=== PATIENT | female | born 2000 | race Caucasian/White ===

== ENCOUNTER 2022-12-12 18:23 | Emergency (ER) | payer OTHER ==
[~2022-12-12] VITALS: Ht 165.1 cm; Wt 91.5 kg
[2022-12-12 18:30] VITALS: TEMP 98.5
[2022-12-12 19:16] LABS: BASO % 0.3 % (0.0-1.0); EOS # 0.1 10^3/uL (0.0-0.5); EOS % 0.8 % (0.0-3.0); HEMATOCRIT 42.4 % (36.0-47.0); HEMOGLOBIN 13.8 g/dl (12.0-15.5); LYMPH # 2.6 10^3/uL (1.5-5.0); MEAN CORPUSCULAR HEMOGLOBIN 28.2 pg (27.0-33.0); MEAN CORPUSCULAR HGB CONC 32.5 g/dl (32.0-36.5); MEAN CORPUSCULAR VOLUME 86.5 fl (80.0-96.0); MONO # 0.9 10^3/uL (0.0-0.8); MONO % 5.5 % (2.0-8.0); NEUTROPHILS # 11.8 10^3/uL (1.5-8.5); NEUTROPHILS % 75.9 % (36.0-66.0); PLATELET COUNT, AUTOMATED 347 10^3/uL (150-450); WHITE BLOOD COUNT 15.5 10^3/uL (4.0-10.0)
[2022-12-12 19:28] LABS: ETHYL ALCOHOL (ETHANOL) < 0.003 % (0.000-0.010)
[2022-12-12 19:30] LABS: ACETAMINOPHEN LEVEL < 2.0 UG/ML (10.0-20.0); ALBUMIN 4.4 G/DL (3.2-5.2); ALKALINE PHOSPHATASE 76 U/L (46-116); ALT/SGPT < 9 U/L (7.0-40); AST/SGOT 24 U/L (<34); BILIRUBIN,DIRECT 0.3 MG/DL (<0.4); BILIRUBIN,TOTAL 1.1 MG/DL (0.3-1.2); CK-MB VALUE MASS 1.3 NG/ML (<3.6); SALICYLATE LEVEL < 3.0 MG/DL (<30); TOTAL PROTEIN 7.4 G/DL (5.7-8.2)
[2022-12-12 19:32] LABS: THYROID STIMULATING HORMONE 2.566 uIU/ML (0.55-4.78)
[2022-12-12 19:33] LABS: CPK CREATINE PHOSPHOKINASE 66 U/L (34-145); MB/CK RELATIVE INDEX 1.96 (< OR =4)
[2022-12-12 19:34] LABS: RSV AMPLIFICATION NEGATIVE (NEGATIVE)
[2022-12-12 19:38] LABS: BARBITURATES URINE NEGATIVE (NEGATIVE); COCAINE METABOLITE URINE NEGATIVE (NEGATIVE); METHADONE URINE NEGATIVE (NEGATIVE); OPIATES URINE NEGATIVE (NEGATIVE); PHENCYCLIDINE URINE NEGATIVE (NEGATIVE)
[2022-12-12 19:39] LABS: AMPHETAMINES LEVEL URINE POSITIVE (NEGATIVE); BENZODIAZEPINES URINE POSITIVE (NEGATIVE); CANNABINOIDS URINE POSITIVE (NEGATIVE)
[2022-12-12] MEDS ORDERED: UNRESOLVED CLARIFICATION ENTRY XX STA (20:04)
[2022-12-12] MEDS ORDERED: NS 1,000 ML IV ONE (20:05)
[2022-12-12 21:23] VITALS: O2SAT 98
[2022-12-12 21:31] VITALS: BP 167/112
[2022-12-12 22:58] LABS: HCG, SERUM QUANTITATIVE 49.2 MIU/ML (<4.2)
== END 2022-12-12 23:48 | disposition left against medical advice (07) ==
LOC: M ED 18:23 → EDBD 18:23 → M ED 23:48
DX: R56.9 Unspecified convulsions (principal); Z32.01 Encounter for pregnancy test, result positive